=== PATIENT | male | born 1995 | race Caucasian/White ===

== ENCOUNTER → 2021-10-05 | Outpatient (CLI) | payer BC | LOC: HEART CORB 13:40 | DX: R00.2 Palpitations (principal); R06.02 Shortness of breath; I08.3 Combined rheumatic disorders of mitral, aortic and tricuspid valves; I27.20 Pulmonary hypertension, unspecified | CPT/HCPCS: 93306 ==

== ENCOUNTER → 2021-11-04 | Outpatient (CLI) | payer BC | LOC: CT 15:19 | DX: I77.810 Thoracic aortic ectasia (principal); Q23.1 Congenital insufficiency of aortic valve | CPT/HCPCS: 71275; Q9967 ==